=== PATIENT | male | born 1940 | race Caucasian/White ===

== ENCOUNTER → 2020-02-23 09:44 | Outpatient (BNVA) | payer OTHER, SELFPAY | PROVIDERS: Family Provider Family Medicine; PCP Family Medicine; Visit Provider Psychiatry & Neurology Psychiatry | DX: F33.41 Major depressive disorder, recurrent, in partial remission (principal); F43.10 Post-traumatic stress disorder, unspecified | CPT/HCPCS: 90792 ==

== ENCOUNTER → 2020-03-02 10:28 | Outpatient (BNVA) | payer OTHER, SELFPAY | PROVIDERS: Family Provider Family Medicine; PCP Family Medicine; Visit Provider Psychiatry & Neurology Psychiatry | DX: F33.41 Major depressive disorder, recurrent, in partial remission (principal); F43.10 Post-traumatic stress disorder, unspecified | CPT/HCPCS: 99214 ==

== ENCOUNTER → 2020-03-10 07:49 | Outpatient (BNVA) | payer OTHER, SELFPAY | PROVIDERS: Family Provider Family Medicine; PCP Family Medicine; Visit Provider Psychiatry & Neurology Psychiatry | DX: F33.41 Major depressive disorder, recurrent, in partial remission (principal); F43.10 Post-traumatic stress disorder, unspecified | CPT/HCPCS: 99215 ==

== ENCOUNTER → 2020-03-26 07:48 | Outpatient (BNVA) | payer OTHER, SELFPAY | PROVIDERS: Family Provider Family Medicine; PCP Family Medicine; Visit Provider Psychiatry & Neurology Psychiatry | DX: F43.10 Post-traumatic stress disorder, unspecified (principal); F33.41 Major depressive disorder, recurrent, in partial remission | CPT/HCPCS: 99214 ==

== ENCOUNTER → 2020-04-27 13:15 | Outpatient (BNVA) | payer OTHER, BC, SELFPAY | PROVIDERS: Family Provider Family Medicine; PCP Family Medicine; Visit Provider Nurse Practitioner Family | DX: Z11.59 Encounter for screening for other viral diseases (principal); J06.9 Acute upper respiratory infection, unspecified | CPT/HCPCS: 87635 ==

== ENCOUNTER → 2020-05-14 09:17 | Outpatient (BNVA) | payer OTHER, SELFPAY | PROVIDERS: Family Provider Family Medicine; PCP Family Medicine; Visit Provider Psychiatry & Neurology Psychiatry | DX: F43.10 Post-traumatic stress disorder, unspecified (principal); F33.41 Major depressive disorder, recurrent, in partial remission | CPT/HCPCS: 99214 ==

== ENCOUNTER → 2020-07-13 10:45 | Outpatient (BNVA) | payer OTHER, SELFPAY | PROVIDERS: Family Provider Family Medicine; PCP Family Medicine; Visit Provider Psychiatry & Neurology Psychiatry | DX: F33.41 Major depressive disorder, recurrent, in partial remission (principal); F43.10 Post-traumatic stress disorder, unspecified | CPT/HCPCS: 99214 ==

== ENCOUNTER → 2020-08-12 10:48 | Outpatient (BNVA) | payer OTHER, SELFPAY | PROVIDERS: Family Provider Family Medicine; PCP Family Medicine; Visit Provider Psychiatry & Neurology Psychiatry | DX: F43.10 Post-traumatic stress disorder, unspecified (principal); F33.41 Major depressive disorder, recurrent, in partial remission | CPT/HCPCS: 99214 ==

== ENCOUNTER → 2020-09-30 09:48 | Outpatient (BNVA) | payer OTHER, SELFPAY | PROVIDERS: Family Provider Family Medicine; PCP Family Medicine; Visit Provider Psychiatry & Neurology Psychiatry | DX: F33.41 Major depressive disorder, recurrent, in partial remission (principal); F43.10 Post-traumatic stress disorder, unspecified | CPT/HCPCS: 99214 ==

== ENCOUNTER → 2020-11-09 10:47 | Outpatient (BNVA) | payer OTHER, SELFPAY | PROVIDERS: Family Provider Family Medicine; PCP Family Medicine; Visit Provider Psychiatry & Neurology Psychiatry | DX: F43.10 Post-traumatic stress disorder, unspecified (principal); F33.41 Major depressive disorder, recurrent, in partial remission | CPT/HCPCS: 99214 ==

== ENCOUNTER → 2020-12-30 09:59 | Outpatient (BNVA) | payer OTHER, SELFPAY | PROVIDERS: Family Provider Family Medicine; PCP Family Medicine; Referring Provider Family Medicine; Visit Provider Specialist | DX: M79.642 Pain in left hand (principal) | CPT/HCPCS: 73130 ==

== ENCOUNTER → 2021-01-04 10:34 | Outpatient (BNVA) | payer OTHER, SELFPAY | PROVIDERS: Family Provider Family Medicine; PCP Family Medicine; Visit Provider Psychiatry & Neurology Psychiatry | DX: F43.10 Post-traumatic stress disorder, unspecified (principal); F33.41 Major depressive disorder, recurrent, in partial remission | CPT/HCPCS: 99214 ==

== ENCOUNTER → 2021-01-10 10:11 | Outpatient (BNVA) | payer OTHER, SELFPAY | PROVIDERS: Family Provider Family Medicine; PCP Family Medicine; Visit Provider Specialist | DX: M79.643 Pain in unspecified hand (principal); Z11.52 Encounter for screening for COVID-19 | CPT/HCPCS: 87635 ==

== ENCOUNTER 2021-01-14 06:41 | Day surgery (SDC) | payer OTHER, SELFPAY ==
[2021-01-13 16:36] VITALS: BMI 30.2
--- NOTE | 2021-01-14 06:57 | P.HPUD_ITS ---
Surgery/Procedure H&P Update DATE OF PROCEDURE: January 14, 2021 DATE H&P PERFORMED: 12/30/20 H&P UPDATE INFORMATION: I have reviewed H&P completed within last 30 days, I have examined patient prior to procedure, No changes to prior documentation and H&P is in [facility] EMR on date indicated PREOP DIAGNOSIS: Left ring finger triggering PLANNED PROCEDURE: Operation Date: 01/14/21 08:20 Proposed Procedures p LEFT RING FINGER TRIGGER FINGER RELEASE 29792 m65.30(Left) - Christina River MD Related Problem List Diagnoses (1) Trigger ring finger of left hand:
[2021-01-14 06:59] VITALS: BP 146/79; PULSE 57; RESP 18; TEMP 36.4; O2SAT 96
[2021-01-14] MEDS: sodium chloride 0.9% 1,000 ML 30 ML IV (07:21)
[2021-01-14] MEDS: acetaminophen 1,000 MG/100 ML PIGGYBACK 400 MG IV (07:22)
[2021-01-14] MEDS: CELEcoxib 200 mg Capsule 400 MG PO (07:22)
--- NOTE | 2021-01-14 07:36 | ANES.PREANE2 ---
Pre-Anesthetic Assessment Pre-Anesthetic Assessment: Height/Weight: Height 1.75 m Weight 92.986 kg Temp Pulse Resp BP Pulse Ox 97.6 F 57 L 18 146/79 96 01/14/21 06:59 01/14/21 06:59 01/14/21 06:59 01/14/21 06:59 01/14/21 06:59 Preop Diagnosis: Left ring finger triggering Proposed Procedure: Operation Date: 01/14/21 08:20 Proposed Procedures p LEFT RING FINGER TRIGGER FINGER RELEASE 42087 m65.30(Left) - Christina River MD Was Beta Eze taken within 24 hours: N/A Was Clonidine taken within 24 hours: N/A Last intake: Intake Last Liquid Date 01/14/21 Last Liquid Time 05:00 Last Solid Date 01/13/21 Last Solid Time 18:30 Social: Social History: No alcohol and No tobacco Exam: Pre-Anes Outpt Exam: alert, oriented x 3, clear to auscultation bilaterally and regular rate & rhythm Airway: Submandibular: WNL Cervical ROM: WNL MP: 2 History/ROS: No significant history except as noted Musc/skel: Musc/skel: OA/DJD Neuropsych: Neuropsych: Depression Anesthetic Plan: ASA status: 2 Anesthesia: MAC and Regional (specify below) (Marry mills) Other: History of adverse rxn to Versed. Risk of > 500 ml blood loss (7ml/kg in children): No Meds/Allergies Current Medications: Current Medications Generic Name Dose Route Start Last Admin Trade Name Freq PRN Reason Stop Dose Admin Sodium Chloride 1,000 mls @ 30 ml s/hr 01/14/21 07:00 01/14/21 07:21 Sodium Chloride 0.9% IV 01/15/21 06:59 30 mls/hr .Q24H DESTIN Administration PFSH Anesthesia PFSH: Medical History Major depressive disorder PTSD (post-traumatic stress disorder) Social History Smoking and tobacco status: former smoker Quit status (tobacco): has quit using tobacco Year quit tobacco: 1974 Second hand smoke exposure: No Current gender identity: Male Data Anesthesia Cardiac Studies: No Data to Display
[2021-01-14 09:08] VITALS: BP 156/86; PULSE 97; RESP 18; TEMP 36.5; O2SAT 97
[2021-01-14 09:10] VITALS: BP 153/93; BP 156/86; PULSE 64; PULSE 65; RESP 16; RESP 18; O2SAT 94; O2SAT 98
[2021-01-14 09:15] VITALS: BP 153/93; PULSE 61; RESP 17; O2SAT 95
[2021-01-14 09:20] VITALS: BP 166/85; PULSE 62; RESP 17; TEMP 36.6; O2SAT 95
--- NOTE | 2021-01-14 09:45 | P.OP_ITS ---
Operative Report Date of procedure: January 14, 2021 Pre-op Diagnosis: Left ring finger triggering Post-op diagnosis: same Post-op Findings: Significant thickening of the A1 lucas Procedure Done: Release left trigger finger Implants: None Specimens removed/disposition: None Pathology: none sent Surgeon: Christina River Grout Pump Operator: None Anesthesia: MAC (With Marry block) Estimated blood loss (mL): 0 Tourniquet time (min): 27 Tourniquet time: At 250 mmHg IV fluids (mL): 200 Urine output (mL): 0 Urine output: No Lacey Complications: None Findings: Triggering with significant thickening of the A1 lucas. No masses on the tendons. Condition: stable Disposition: PACU (Then to same-day surgery for discharge home) Brief History: This 80-year-old gentleman presented to the office with bilateral ring finger triggering. He had significant triggering to the point where the finger would get stuck and he had to manually pry the finger open. He had significant pain and interfered with his activities of daily living. He wished to proceed with operative intervention. Risks and complications were discussed with him. Consents were signed preoperatively and questions were answered. Procedure: Patient was brought to the operating theater. He was placed on the operating room table. A [place] block was administered without difficulty. Patient tolerated it well. Ancef 2 g was administered preoperatively prophylactically. A tourniquet was placed high on the arm and was elevated for the Marry block. This followed exsanguination of the arm. Tourniquet time was 27 minutes. Surgical pause was performed prior to commencement of the surgical procedure. At the time of the surgical pause we identified the site and side of surgery. We also ident ified the patient's identity and appropriate administration of IV antibiotics. Following the surgical pause, an incision was made along the distal palmar crease beneath ring finger. Dissection continued through the skin to the subcutaneous tissues using a scalpel. Blunt dissection was then utilized to spread soft tissues and allow access to the A1 lucas. It was then incised longitudinally and sharply using a knife. This was accomplished without difficulty and atraumatically. Once the A1 lucas was released, tendons were brought up out of the wound and evaluated. There were no gross masses on the tendons. Tendons were returned to normal position. We then irrigated the wound and subsequently closed it with 3-0 nylon with an interrupted mattress type suture. Following closure of the wound, the wound was injected with bupivacaine into the subcutaneous tissues as a local anesthetic. Sterile dressing was then placed consisting of OpSite, fluffed fluffs, sterile soft roll, and an Zeyad wrap. The patient was returned to recovery in satisfactory condition. He will be discharged home to follow-up with me in the office. There were no complications and no specimens. Associated Problem List Diagnoses (1) Trigger ring finger of left hand:
[2021-01-14 09:51] VITALS: BP 156/91; PULSE 62; RESP 18; TEMP 36.6; O2SAT 96
--- NOTE | 2021-01-14 15:51 | ANE.PACU2 ---
Inpatient post-anesthesia follow up: Airway intact: Yes Vital signs: Temperature 97.9 F Pulse Rate 62 Respiratory Rate 18 Blood Pressure 156/91 Pulse Oximetry 96 Oxygen Delivery Me thod Room Air Oxygen Flow Rate 6 Fraction of Inspir ed Oxygen Hydration adequate: Yes Nausea and vomiting: No Pain level: 1 Mental status: Baseline
== END 2021-01-14 10:25 | disposition home or self-care (01) ==
PROVIDERS: PCP Family Medicine; Visit Provider Specialist
PROC: (CPT 26055; principal; 2021-01-14 08:10)
DX: M65.342 Trigger finger, left ring finger (principal); F32.9 Major depressive disorder, single episode, unspecified; Z87.891 Personal history of nicotine dependence
CPT/HCPCS: 26055; 96365; J0690; J2405; J2704; J3490; J7030

== ENCOUNTER → 2021-01-31 08:36 | Outpatient (BNVA) | payer OTHER, SELFPAY | PROVIDERS: PCP Family Medicine; Referring Provider Specialist; Visit Provider Specialist | DX: Z01.812 Encounter for preprocedural laboratory examination (principal); Z20.822 Contact with and (suspected) exposure to COVID-19 | CPT/HCPCS: 87635 ==

== ENCOUNTER 2021-02-04 06:48 | Day surgery (SDC) | payer OTHER, MEDICARE, SELFPAY ==
[2021-02-03 12:27] VITALS: BMI 29.5
--- NOTE | 2021-02-04 07:00 | W.PM.OPSUD ---
Surgery/Procedure H&P Update DATE OF PROCEDURE: February 04, 2021 DATE H&P PERFORMED: 01/31/21 H&P UPDATE INFORMATION: I have reviewed H&P completed within last 30 days, I have examined patient prior to procedure, No changes to prior documentation and [place] is [place] [facility] [place] date indicated PREOP DIAGNOSIS: Right ring finger triggering PLANNED PROCEDURE: Operation Date: 02/04/21 08:20 Proposed Procedures p RIGHT RING FINGER TRIGGER FINGER RELEASE 36001 m65.30(Right) - Christina River MD Related Problem List Diagnoses (1) Trigger finger, right ring finger:
[2021-02-04 07:11] VITALS: BP 169/84; PULSE 59; RESP 18; TEMP 36.1; O2SAT 95
--- NOTE | 2021-02-04 07:31 | ANES.PREANE2 ---
Pre-Anesthetic Assessment Pre-Anesthetic Assessment: Height/Weight: Height 1.75 m Weight 90.718 kg Temp Pulse Resp BP Pulse Ox 97 F L 59 L 18 169/84 95 02/04/21 07:11 02/04/21 07:11 02/04/21 07:11 02/04/21 07:11 02/04/21 07:11 Preop Diagnosis: Right ring finger trigger finger Proposed Procedure: Operation Date: 02/04/21 08:20 Proposed Procedures p RIGHT RING FINGER TRIGGER FINGER RELEASE 67105 m65.30(Right) - Christina River MD Familial anesthetic complications: Spinal block didn't take for knee, said he had to get more anesthesia and then he hallucinated for months. ? Versed. Was Beta Eze taken within 24 hours: N/A Was Clonidine taken within 24 hours: N/A Last intake: Intake Last Liquid Date 02/03/21 Last Liquid Time 21:30 Last Solid Date 02/03/21 Last Solid Time 18:30 Social: Social History: No alcohol and No tobacco Exam: Pre-Anes Outpt Exam: alert, oriented x 3, clear to auscultation bilaterally and regular rate & rhythm Airway: Cervical ROM: WNL MP: 2 Dentition: Full CV/HEM: CV/HEM: HTN Neuropsych: Comments: ? dementia take donepezil Anesthetic Plan: ASA status: 2 Anesthesia: Regional (specify below) (frank block) Risk of > 500 ml blood loss (7ml/kg in children): No PFSH Anesthesia PFSH: Medical History Major depressive disorder PTSD (post-traumatic stress disorder) Social History Quit status (tobacco): has quit using tobacco Year quit tobacco: 1974 Second hand smoke exposure: No Current gender identity: Male Data Anesthesia Cardiac Studies: No Data to Display
[2021-02-04] MEDS: CELEcoxib 200 mg Capsule 400 MG PO (07:41)
[2021-02-04] MEDS: sodium chloride 0.9% 1,000 ML 30 ML IV (07:44)
[2021-02-04] MEDS: acetaminophen 1,000 MG/100 ML PIGGYBACK 400 MG IV (07:45)
[2021-02-04 08:49] VITALS: BP 138/84; PULSE 62; RESP 14; TEMP 36.4; O2SAT 94
[2021-02-04 08:55] VITALS: BP 151/74; PULSE 59; RESP 17; O2SAT 92
[2021-02-04 09:00] VITALS: BP 147/78; PULSE 59; RESP 17; TEMP 36.6; O2SAT 93
--- NOTE | 2021-02-04 09:09 | PM.OP ---
Operative Report Date of procedure: February 04, 2021 Pre-op Diagnosis: Right ring finger trigger finger Post-op diagnosis: same Post-op Findings: Thickened A1 lucas with triggering thickened A1 lucas Procedure Done: Release right ring trigger finger Implants: None Specimens removed/disposition: None Pathology: none sent Surgeon: Christina River Anesthesia: MAC (With Marry block) Estimated blood loss (mL): 1 Tourniquet time (min): 23 Tourniquet time: At 250 mmHg IV fluids (mL): 300 Urine output (mL): 0 Urine output: No Lacey Complications: None Findings: Triggering with significant thickening of the A1 lucas right ring finger. No masses or lesions on the tendons. Condition: stable Disposition: PACU (Then to same-day surgery for discharge to home) Brief History: This 80-year-old gentleman presented to the office with bilateral ring finger triggering. He had significant triggering to the point where the left ring finger finger would get stuck and he had to manually pry the finger open. He is status post trigger finger release on this hand and is doing well. Now he presents with triggering of the right hand. He has significant pain and interference with his activities of daily living. He wishs to proceed with operative intervention. Risks and complications were discussed with him. Consents were signed preoperatively and questions were answered. Procedure: Patient was brought to the operating theater. He was placed on the operating room table. A Marry block was administered without difficulty. Patient tolerated it well. Ancef 2 g was administered preoperatively prophylactically. A tourniquet was placed high on the arm and was elevated for the Marry block. This followed exsanguination of the arm. Tourniquet time was 23 minutes. Surgical pause was performed prior to commencement of the surgical procedure. At the time of the surgical pause we identified the site and side of surgery. We also identified the patient's identity and appropriate administration of IV antibiotics, Ancef 2 g. Following the surgical pause, an incision was made along the distal palmar crease beneath ring finger. Dissection continued through the skin to the subcutaneous tissues using a scalpel. Blunt dissection was then utilized to spread soft tissues and allow access to the A1 lucas. It was then incised longitudinally and sharply using a knife. This was accomplished without difficulty and atraumatically. Once the A1 lucas was released, tendons were brought up out of the wound and evaluated. There were no gross masses on the tendons. Tendons were returned to normal position. We then irrigated the wound and subsequently closed it with 3-0 nylon with an interrupted mattress type suture. Following closure of the wound, the wound was injected with bupivacaine into the subcutaneous tissues as a local anesthetic. Sterile dressing was then placed consisting of Dermabond, OpSite, fluffed fluffs, sterile soft roll, and an Zeyad wrap. The patient was returned to recovery in satisfactory condition. He will be discharged home to follow-up with me in the office. There were no complications and no specimens.
[2021-02-04 09:23] VITALS: BP 165/66; PULSE 57; RESP 18; TEMP 36.7; O2SAT 96
--- NOTE | 2021-02-04 14:50 | ANE.PACU2 ---
Inpatient post-anesthesia follow up: Airway intact: Yes Vital signs: Temperature 98.1 F Pulse Rate 57 Respiratory Rate 18 Blood Pressure 165/66 Pulse Oximetry 96 Oxygen Delivery Me thod Room Air Oxygen Flow Rate Fraction of Inspir ed Oxygen Hydration adequate: Yes Nausea and vomiting: No Pain level: 1 Mental status: Baseline
== END 2021-02-04 09:41 | disposition home or self-care (01) ==
PROVIDERS: PCP Family Medicine; Visit Provider Specialist
PROC: (CPT 26055; principal; 2021-02-04 08:10)
DX: M65.341 Trigger finger, right ring finger (principal); I10 Essential (primary) hypertension; F03.90 Unspecified dementia, unspecified severity, without behavioral disturbance, psychotic disturbance, mood disturbance, and anxiety; Z87.891 Personal history of nicotine dependence
CPT/HCPCS: 26055; 96365; J0690; J2704; J3490; J7030

== ENCOUNTER → 2021-02-14 09:45 | Outpatient (BNVA) | payer OTHER, SELFPAY | PROVIDERS: PCP Family Medicine; Visit Provider Psychiatry & Neurology Psychiatry | DX: F43.10 Post-traumatic stress disorder, unspecified (principal); F33.41 Major depressive disorder, recurrent, in partial remission | CPT/HCPCS: 99214 ==

== ENCOUNTER 2021-02-15 06:00 | Outpatient (RCR) | payer OTHER, SELFPAY | END 2021-03-01 23:59 | disposition home or self-care (01) | LOC: MPT 06:00 | PROVIDERS: PCP Family Medicine; Referring Provider Family Medicine; Visit Provider Family Medicine | DX: R27.0 Ataxia, unspecified (principal) | CPT/HCPCS: 95992; 97110; 97112; 97116; 97162 ==

== ENCOUNTER 2021-02-18 13:25 | Outpatient (CLI) | payer OTHER, MEDICARE, SELFPAY ==
--- NOTE | 2021-02-18 13:30 | MR_ITS ---
WS: [id number] MRI HEAD WITHOUT CONTRAST TECHNIQUE: Sagittal T1, T2 axial, T2 axial FLAIR, axial and coronal T1 images, axial susceptibility w eighted imaging, axial diffusion weighted images, and coronal T2 images were obtained. CLINICAL INFORMATION: ATAXIA;DEMENTIA COMPARISON: None. FINDINGS: No evidence of restricted diffusion to suggest acute ischemia. Ventricular system and basal cisterns are patent. Moderate small vessel changes. Moderate parenchymal volume loss. Normal posterior fossa. Normal vascular flow voids at the skull base. No extra-axial fluid collections. Chronic lacunar infarct right caudate. Paranasal sinuses and mastoid air cells are well aerated. No h emosiderin on the susceptibility weighted images. Normal optic chiasm and pituitary infundibulum. Mod erate symmetric atrophy temporal lobes and hippocampal formations. Normal cavernous sinuses and Mecke l's cave. MR/MR head wo con* [id number] IMPRESSION: 1. No evidence of restricted diffusion to suggest acute ischemia. 2. Mild small vessel changes with moderate parenchymal volume loss. 3. Parenchymal volume loss more prominent in the parietal and temporal lobes. 4. No hemosiderin on the susceptibly weighted images. 5. Moderate symmetric atrophy temporal lobes and hippocampal formations. 6. Chronic lacunar infarct right caudate.
== END 2021-02-18 13:26 | disposition home or self-care (01) ==
LOC: RADSHAW 13:28
PROVIDERS: PCP Family Medicine; Visit Provider Family Medicine
DX: R27.0 Ataxia, unspecified (principal); F03.90 Unspecified dementia, unspecified severity, without behavioral disturbance, psychotic disturbance, mood disturbance, and anxiety; I63.81 Other cerebral infarction due to occlusion or stenosis of small artery; G31.9 Degenerative disease of nervous system, unspecified
CPT/HCPCS: 70551

== ENCOUNTER → 2021-02-21 08:30 | Outpatient (BNVA) | payer OTHER, MEDICARE, SELFPAY | PROVIDERS: PCP Family Medicine; Visit Provider Specialist | DX: N39.0 Urinary tract infection, site not specified (principal); M65.341 Trigger finger, right ring finger; Z98.890 Other specified postprocedural states | CPT/HCPCS: 81000 ==

== ENCOUNTER → 2021-02-23 14:10 | Outpatient (BNVA) | payer OTHER, MEDICARE, SELFPAY | PROVIDERS: PCP Family Medicine; Visit Provider Specialist | DX: M25.511 Pain in right shoulder (principal); M19.011 Primary osteoarthritis, right shoulder | CPT/HCPCS: 73030 ==

== ENCOUNTER 2021-03-04 10:05 | Outpatient (CLI) | payer OTHER, MEDICARE, SELFPAY ==
--- NOTE | 2021-03-04 10:15 | MR_ITS ---
WS: [id number] MRI LEFT SHOULDER NONCONTRAST TECHNIQUE: Sagittal T2, coronal T1, T2 and proton density imaging. Axial gradient PDE imaging. CLINICAL INFORMATION: M25.519 - Pain in unspecified shoulder COMPARISON: None. FINDINGS: Advanced degenerative arthritis at the AC joint with edema and synovial thickening. Small amount of s ubacromial/subdeltoid fluid. Subacromial spurring with mild downsloping of the acromion. Slight impin gement on the distal supraspinatus. Mild chronic thinning of the distal supraspinatus. Normal infrasp inatus. Normal teres minor and subscapularis. Intra-articular biceps tendon appears intact. Normal biceps tendon in the bicipital groove. Degenerative fraying of the glenoid labrum. Subchondral cystic change involving the glenoid. Normal biceps labral anchor. Moderate degenerative arthritis glenohumeral joint MR/MR shoulder LT wo con* [id number] IMPRESSION: 1. Advanced degenerative arthritis AC joint with prominent synovial thickening and edema. Mild downsloping acromion with subacromial spurring. 2. Slight impingement on the distal supraspinatus which is intact. Mild chroni c thinning of the distal supraspinatus. Rotator cuff is otherwise normal. 3. Normal biceps tendon within the bicipital groove. Normal intra-articular bi ceps tendon. 4. Degenerative fraying of the glenoid labrum. Subchondral cystic change invol ving the glenoid.
== END 2021-03-04 10:06 | disposition home or self-care (01) ==
PROVIDERS: PCP Family Medicine; Visit Provider Specialist
DX: M19.012 Primary osteoarthritis, left shoulder (principal)
CPT/HCPCS: 73221

== ENCOUNTER → 2021-03-28 09:43 | Outpatient (BNVA) | payer OTHER, SELFPAY | PROVIDERS: PCP Family Medicine; Visit Provider Psychiatry & Neurology Psychiatry | DX: F43.10 Post-traumatic stress disorder, unspecified (principal); F33.41 Major depressive disorder, recurrent, in partial remission | CPT/HCPCS: 99214 ==

== ENCOUNTER → 2021-05-23 08:25 | Outpatient (BNVA) | payer OTHER, SELFPAY | PROVIDERS: PCP Family Medicine; Visit Provider Urology | DX: N40.0 Benign prostatic hyperplasia without lower urinary tract symptoms (principal); Z12.5 Encounter for screening for malignant neoplasm of prostate | CPT/HCPCS: 81003; G0103 ==

== ENCOUNTER 2021-09-12 12:36 | Emergency (ER) | payer OTHER, MEDICARE, SELFPAY ==
[2021-09-12 12:52] VITALS: BP 159/88; PULSE 72; RESP 18; TEMP 36.7; O2SAT 95; BMI 29.5
--- NOTE | 2021-09-12 13:00 | CT_ITS ---
WS: [id number] CT head wo con* [id number] REASON FOR EXAM: fall, closed head injury IV CONTRAST ADMINISTERED: Noncontrast. TOTAL EXAM DLP: 1026.[address] scans at [facility] use at least one of these dose optimization techniques: automat ed exposure control; mA and/or kV adjustment per patient size (includes targeted exams where dose is matched to clinical indication); or iterative reconstruction. FINDINGS: No midline shift or other significant mass effect. No findings of intracranial hemorrhage and no extra-axial fluid collection. CSF spaces are normal volume and configuration. No focal brain parenchymal abnormality. Base of skull is intact. Normal calvarium. CT/CT head wo con* [id number] IMPRESSION: No acute intracranial abnormality.
[2021-09-12 13:08] VITALS: BP 175/84; PULSE 68; O2SAT 93
[2021-09-12 13:45] LABS: Basophils # 0.1 10^3/uL (0.0-0.1); Basophils % 0.7 %; Eosinophils # 0.2 10^3/uL (0.0-0.8); Eosinophils % 3.2 %; Hemoglobin 13.9 g/dL (11.7-16.6); Lymphocytes # 2.2 10^3/uL (0.8-4.8); Mean Corpuscular HGB Conc 29.6 g/dL (30.0-36.0); Mean Corpuscular Hemoglobin 30.5 pg (28.0-34.0); Mean Corpuscular Volume 103.1 fl (80-94); Mean Platelet Volume 9.3 fL (7.4-10.4); Monocytes # 0.7 10^3/uL (0.2-0.9); Monocytes % 9.8 %; Neutrophils # 4.22 10^3/uL (1.8-7.7); Neutrophils % 56.8 %; Nucleated Red Blood Cells % 0 %; Platelet Count 256 10^3/cmm (130-400); Red Blood Count 4.56 10^6/uL (4.1-5.3); Red Cell Distribution Width 12.3 % (12.1-15.1); White Blood Count 7.4 10^3/uL (4.0-10.0)
--- NOTE | 2021-09-12 14:06 | W.ED.FALL ---
HPI - Fall General: Chief Complaint: Fall Stated Complaint: hit head, sent for ct scan Time Seen by Provider: 09/12/21 12:58 Source: patient Mode of arrival: ambulatory Limitations: no limitations History of Present Illness: 81-year-old male presents emergency room with his daughter. He been falling several times since Sunday he does report having fallen frequently 3 days ago he fell and hit his head he has a small hematoma in the right frontal lobe at the hairline. He is continues to have his episodes of dizziness lightheadedness he was at the [place] and began leaning into the wall because of his dizziness they became quite concerned and sent him here he has not had any vomiting since he is not on any anticoagulants. He denies any chest pain. Shortly after I seen him he wanted to go home states he felt fine related only to head CT for which we were able to convince him to stay MD complaint: fall Onset (ago): day(s) Fall from: standing Fall witnessed: yes, by family Place fall occurred: home Loss of consciousness: Unsure Prolonged down time: no Context: tripped/slipped Location of injury: head Associated symptoms-after fall: Reports lightheadedness; Denies abdominal pain, chest pain, confusion, difficulty walking, headache(s), hematuria, neck pain, numbness, short of breath, vertigo or weakness Review of Systems Const: Denies: fever(s), chills, body aches, change in appetite, fatigue or malaise ENMT: Denies: throat pain, ear or mastoid pain, nasal discharge or nasal congestion Card: Reports: lightheadedness; Denies: chest pain Resp: Denies: dyspnea, productive cough or non-productive cough GI: Denies: abdominal pain : Denies: hematuria Musc: Denies: neck pain Skin/Breast: Denies: rash or pruritus Neuro: Denies: headache(s), difficulty walking, vertigo or confusion PFSH ED PFSH: Medical History BPH loc w urin obs/LUTS Hx of cataract Major depressive disorder Psychiatric care PTSD (post-traumatic stress disorder) Surgical History History of hip replacement Hx of appendectomy Hx of cholecystectomy Hx of discectomy Hx of total knee replacement Family History Brother Diabetes Mother , AT AGE 81 CHF (congestive heart failure) Father , AT AGE 75 CAD (coronary artery disease) Social History Smoking and tobacco status: former smoker Quit status (tobacco): has quit using tobacco Year quit tobacco: 1974 Second hand smoke exposure: No Alcohol intake: never Marital status: Current occupational status: retired Current gender identity: Male Physical Exam Const: COMMON NORMALS: no acute distress GENERAL APPEARANCE: cooperative and comfortable ORIENTATION/CONSCIOUSNESS: Yes awake HENMT: COMMON NORMALS: normocephalic and hearing grossly normal bilaterally HEAD & SCALP: normocephalic Eye: COMMON NORMALS: Equal, round and reactive pupils present, EOMs intact bilaterally, conjunctivae normal and no scleral icterus CONJUNCTIVA: Yes conjunctivae normal PUPIL: Yes Equal, round and reactive pupils present Neck/C-Spine: COMMON NORMALS: no JVD Resp: COMMON NORMALS: normal respiratory effort, No retractions, No use of accessory muscles and clear to auscultation bilaterally AUSCULTATION: clear to auscultation bilaterally Cardio: COMMON NORMALS: no JVD, regular rate, regular rhythm and No murmurs present (Cardio) RATE: regular rate RHYTHM: regular rhythm GI: COMMON NORMALS: Soft to palpation and No hepatosplenomegaly present AUSCULTATION: Yes normoactive bowel sounds PALPATION: Yes Soft to palpation, No Tenderness to palpation present (GI), No Guarding due to palpation present (GI) and Yes No hepatosplenomegaly present Extremity: COMMON NORMALS: normal to inspection, capillary refill normal, no clubbing, cyanosis or edema, no calf tenderness and no pedal edema Skin: COMMON NORMALS: no rashes or lesions noted GENERAL SKIN EXAM: no rashes or lesions noted Course Vital Signs: Vital signs: Vital Signs Temperature 98.1 F 09/12/21 12:52 Pulse Rate 66 09/12/21 15:30 Respiratory Rate 21 H 09/12/21 15:30 Blood Pressure 163/82 09/12/21 15:30 Pulse Oximetry 93 09/12/21 15:30 MDM - Fall Medical Decision Making CT head negative. Patient feeling fine is anxious to go reviewed labs and imaging with him discharge home encouraged him to follow-up with his primary care doctor consider referral to PT for gait and balance training Medical Records I reviewed the patient's medical records. Lab Data I reviewed the patient's lab results. : 09/12/21 13:27 09/12/21 13:[address] 09/12/21 13:00 IMPRESSION: No acute intracranial abnormality. Laboratory Results WBC 7.4 10^3/uL (4.0-10.0) 09/12/21 13:27 RBC 4.56 10^6/uL (4.1-5.3) 09/12/21 13: Hgb 13.9 g/dL (11.7-16.6) 09/12/21 13: Hct 47.0 % (42.0-52.0) 09/12/21 13: MCV 103.1 fl (80-94) H 09/12/21 13:27 MCH 30.5 pg (28.0-34.0) 09/12/21 13:27 MCHC 29.6 g/dL (30.0-36.0) L 09/12/21 13:27 RDW 12.3 % (12.1-15.1) 09/12/21 13:27 Plt Count 256 10^3/cmm (130-400) 09/12/21 13:27 MPV 9.3 fL (7.4-10.4) 09/12/21 13:27 Neut % (Auto) 56.8 % 09/12/21 13:27 Lymph % (Auto) 29.0 % 09/12/21 13:27 [place] % (Auto) 9.8 % 09/12/21 13:27 Eos % (Auto) 3.2 % 09/12/21 13:27 Baso % (Auto) 0.7 % 09/12/21 13:27 Neut # (Auto) 4.22 10^3/uL (1.8-7.7) 09/12/21 13:27 Lymph # (Auto) 2.2 10^3/uL (0.8-4.8) 09/12/21 13:27 [place] # (Auto) 0.7 10^3/uL (0.2-0.9) 09/12/21 13:27 Eos # (Auto) 0.2 10^3/uL (0.0-0.8) 09/12/21 13:27 Baso # (Auto) 0.1 10^3/uL (0.0-0.1) 09/12/21 13:27 Nucleated RBC % (auto) 0 % 09/12/21 13:27 Nucleated RBCs # 0.0 /100WBC 09/12/21 13:27 Sodium 141 mmol/L (136-145) 09/12/21 13:27 Potassium 3.2 mmol/L (3.5-5.1) L 09/12/21 13:27 Chloride 105 mmol/L (98-107) 09/12/21 13:27 Carbon Dioxide 26 mmol/L (22-29) 09/12/21 13:27 Anion Gap 13.2 (5-19) 09/12/21 13:27 BUN 18 mg/dL (8-23) 09/12/21 13:27 Creatinine 0.9 mg/dL (0.7-1.2) 09/12/21 13:27 GFR Calculation Not Reportable 09/12/21 13:27 Glucose 158 mg/dL (65-115) H 09/12/21 13:27 Calculated Osmolality 297 mOsm/kg (285-295) H 09/12/21 13:27 Calcium 8.5 mg/dL (8.5-10.5) 09/12/21 13:27 Total Bilirubin 0.4 mg/dL (0.15-1.2) 09/12/21 13:27 AST 16 U/L (0-40) 09/12/21 13:27 ALT 13 U/L (0-41) 09/12/21 13:27 Alkaline Phosphatase 80 IU/L (40-130) 09/12/21 13:27 Total Protein 5.8 g/dL (6.6-8.7) L 09/12/21 13:27 Albumin 3.9 g/dL (3.5-5.2) 09/12/21 13:27 Globulin 1.9 g/dL (1.3-4.6) 09/12/21 13:27 Discharge Plan Discharge Patient Disposition: Home Clinical Impression: Fall, Closed head injury Condition: Stable Prescriptions: No Action clobetasol 0.05 % cream 1 applic TOPICAL DAILY PRN (Reason: rash) 0RF meloxicam 15 mg tablet 15 mg PO QAM 0RF hydrochlorothiazide 25 mg tablet 25 mg PO QAM 0RF All Day Allergy (cetirizine) 10 mg capsule 10 mg PO QAM 0RF acetaminophen [Tylenol Arthritis Pain] 650 mg tablet extended release 1,300 mg PO BEDTIME 0RF tramadol 50 mg tablet 50 mg PO Q6H PRN (Reason: Pain) 0RF cephalexin 500 mg capsule 500 mg PO BID 7 Days Qty: 14 0RF silver sulfadiazine 1 % cream 1 applic topical BID 14 Days Qty: 50 2RF Rx Instructions: apply a 1.5 mm thickness bupropion HCl 150 mg tablet extended release 24 hr 150 mg PO QAM 90 Days Qty: 90 3RF donepezil 10 mg Tablet 10 mg PO BEDTIME 0RF Aspir-81 81 mg Tablet,Delayed Release (Dr/Ec) 81 mg PO QAM 0RF baclofen 10 mg Tablet 10 mg PO BID 0RF Benadryl 25 mg Capsule 25 mg PO BEDTIME 0RF Saline Nasal 0.65 % Aerosol,Devers 2 spray INTRANASAL .UP TO TWICE A DAY 0RF trazodone 50 mg tablet 50 mg PO BEDTIME 0RF clonazepam 0.5 mg tablet 0.5 mg PO BID 0RF Discharge Orders: Discharge ED (Routine); Ordered 09/12/21 Ordered By: Lester Prater Referrals: Iris Tao MD [Primary Care Provider] - Discharge Diet: Usual diet Discharge Activity: Increase activity as tolerated Patient Instructions: Opioid Safety Activity Restrictions/Additional Instructions: Follow-up with primary care doctor if not improving Coding Level of Care Code ED Engineering Specialist Technician for Chg Fwd Exam Comprehensive
[2021-09-12 14:09] LABS: Alanine Aminotransferase 13 U/L (0-41); Albumin Level 3.9 g/dL (3.5-5.2); Alkaline Phosphatase 80 IU/L (40-130); Anion Gap 13.2 (5-19); Aspartate Amino Transferase 16 U/L (0-40); Blood Urea Nitrogen 18 mg/dL (8-23); Calcium 8.5 mg/dL (8.5-10.5); Carbon Dioxide 26 mmol/L (22-29); Chloride 105 mmol/L (98-107); Globulin 1.9 g/dL (1.3-4.6); Glucose 158 mg/dL (65-115); Osmolality Calculated 297 mOsm/kg (285-295); Potassium 3.2 mmol/L (3.5-5.1); Sodium 141 mmol/L (136-145); Total Bilirubin 0.4 mg/dL (0.15-1.2); Total Protein 5.8 g/dL (6.6-8.7)
[2021-09-12 14:35] VITALS: BP 153/84; PULSE 64; RESP 18; O2SAT 92
[2021-09-12 14:37] VITALS: O2SAT 92
[2021-09-12 15:30] VITALS: BP 163/82; PULSE 66; RESP 21; O2SAT 93
== END 2021-09-12 15:22 | disposition home or self-care (01) ==
PROVIDERS: Emergency Provider Family Medicine; PCP Family Medicine
DX: S09.8XXA Other specified injuries of head, initial encounter (principal); Z79.82 Long term (current) use of aspirin; Z87.891 Personal history of nicotine dependence; W19.XXXA Unspecified fall, initial encounter
CPT/HCPCS: 70450; 80053; 85025; 99283

== ENCOUNTER → 2021-10-12 08:30 | Outpatient (BNVA) | payer OTHER, MEDICARE, SELFPAY | PROVIDERS: PCP Family Medicine; Visit Provider Podiatrist Foot & Ankle Surgery | DX: L60.3 Nail dystrophy (principal); Z98.890 Other specified postprocedural states; Z87.891 Personal history of nicotine dependence | CPT/HCPCS: 11750; 99213 ==

== ENCOUNTER 2021-10-18 13:21 | Emergency (ER) | payer OTHER, MEDICARE, SELFPAY ==
--- NOTE | 2021-10-18 13:32 | XR_ITS ---
WS: [id number] Exam: XR knee RT 3V* [id number] Date/Time of Exam: 10/18/2021 1:51 PM Reason For Exam: eval injury A total knee prosthesis is in place in satisfactory position. No sign of loosening or fracture. Moder ate effusion in the suprapatellar bursa. XR/XR knee RT 3V* [id number] IMPRESSION: 1. Intact total knee replacement. No fracture or loosening. 2. Joint effusion.
[2021-10-18 13:37] VITALS: BP 151/95; PULSE 62; RESP 18; TEMP 36.6; O2SAT 95; BMI 30.2
--- NOTE | 2021-10-18 13:48 | CT_ITS ---
WS: [email or web address] CT CERVICAL TRAUMA TECHNIQUE: Noncontrast CT of the cervical spine with coronal and sagittal reformatted images. CLINICAL INFORMATION: fall COMPARISON: None. DLP: 789.[address] scans at [facility] use at least one of these dose optimization techniques: automated e xposure control; mA and/or kV adjustment per patient size (includes targeted exams where dose is matc hed to clinical indication); or iterative reconstruction. FINDINGS: Straightening of the normal cervical lordosis. Slight anterolisthesis C5 on C6. Disc space narrowing worse at C6-C7. Mild central canal stenosis C5-C6 and C6-C7. Normal craniocervical junction. Normal C 1-C2 articulation. Dens is normal in appearance. Normal occipital condyles. Normal C1 ring. No eviden ce of acute fracture or dislocation. Bilateral thyroid nodules largest in the RIGHT measuring 1.[address]/CT cervical spin wo con* 20590 IMPRESSION: No evidence of acute fracture or dislocation.
--- NOTE | 2021-10-18 13:48 | CT_ITS ---
WS: [email or web address] CT FACIAL BONES TECHNIQUE: Noncontrast facial bones with coronal and sagittal reformatted images. CLINICAL INFORMATION: fall COMPARISON: None. DLP: 744.[address] scans at [place] use at least one of these dose optimization techniques: automated e xposure control; mA and/or kV adjustment per patient size (includes targeted exams where dose is matc hed to clinical indication); or iterative reconstruction. FINDINGS: Mild mucosal thickening ethmoid air cells. Mastoid air cells are well aerated. Normal visualized soft tissues. Normal posterior nasopharynx. Normal parapharyngeal fat. Parotid glands are normal. Submand ibular glands are normal where visualized. Orbits are normal in appearance. Inferior orbits are normal in appearance. Normal lamina papyracea. No evidence of mandibular fracture dislocation. CT/CT facial bones wo con* [id number] IMPRESSION: No acute facial fracture.
--- NOTE | 2021-10-18 13:48 | XR_ITS ---
WS: [email or web address] Exam: XR pelvis 1-2V* [id number] Date/Time of Exam: 10/18/2021 1:52 PM Reason For Exam: pain Comparison 01/27/2019. No acute pelvic fracture. Total hip prosthesis in place on the left intact as visualized. 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 XR/XR pelvis 1-2V* 47377 IMPRESSION: 1. No acute pelvic fracture.
--- NOTE | 2021-10-18 13:48 | XR_ITS ---
WS: [email or web address] Exam: XR shoulder LT min 2V* [id number] Date/Time of Exam: 10/18/2021 1:52 PM Reason For Exam: shoulder pain No acute fracture or dislocation. Mild soft tissue calcification along the humeral head that might in dicate calcific tendinitis and/or bursitis. XR/XR shoulder LT min 2V* 68457 IMPRESSION: 1. No fracture or dislocation. 2. Possible mild calcific tendinitis or bursitis.
--- NOTE | 2021-10-18 13:48 | CT_ITS ---
WS: [email or web address] CT HEAD TECHNIQUE: Noncontrast CT of the head obtained from the skullbase to the vertex. CLINICAL INFORMATION: fall COMPARISON: None. DLP: 956.[address] scans at [facility] use at least one of these dose optimization techniques: automated e xposure control; mA and/or kV adjustment per patient size (includes targeted exams where dose is matc hed to clinical indication); or iterative reconstruction. FINDINGS: No evidence of intracranial hemorrhage or mass effect. Ventricular system and basal cisterns are mccann nt. Moderate small vessel changes with moderate parenchymal volume loss. Chronic lacunar infarct RIGH T caudate. No extra-axial fluid collections. No evidence of mass or mass effect. Paranasal sinuses and mastoid air cells are well aerated. .Normal visualized soft tissues. CT/CT head wo con* [id number] IMPRESSION: 1. No evidence of intracranial hemorrhage or mass effect. 2. Moderate small vessel changes with moderate parenchymal volume loss. 3. Chronic lacunar infarct RIGHT caudate. 4. No acute intracranial findings.
--- NOTE | 2021-10-18 13:48 | XR_ITS ---
WS: [email or web address] Exam: XR ribs LT mn 3V w CXR1V 63398 Date/Time of Exam: 10/18/2021 1:52 PM Reason For Exam: rib pain No acute left rib fracture noted. The left lung is clear and fully expanded. No pleural or pulmonary reactive changes. XR/XR ribs LT mn 3V w CXR1V 40961 IMPRESSION: 1. Negative left rib study. No pneumothorax.
--- NOTE | 2021-10-18 13:48 | XR_ITS ---
WS: [email or web address] Exam: XR lumbar spine 2-3V* [id number] Date/Time of Exam: 10/18/2021 1:52 PM Reason For Exam: pain Comparison 01/27/2019. No acute fracture or dislocation. Mild disc degenerative change at L4-5 with the slight degenerative anterolisthesis. Facet arthropathy at L4-5 and L5-S1. Minimal spondylosis. Moderate aortoiliac athero sclerosis. XR/XR lumbar spine 2-3V* 26384 IMPRESSION: 1. Mild degenerative changes. No acute fracture or malalignment.
--- NOTE | 2021-10-18 13:54 | W.ED.GENADLT ---
HPI - General Adult General: Chief complaint: Fall Stated complaint: Fell in a hole, Left Knee injury Time Seen by Provider: 10/18/21 13:32 History of Present Illness: Patient is a 81-year-old male with a history of depression, PTSD, prior appendectomy and cholecystectomy presenting to the emergency room with concerns for fall. Patient tells me that he was taking up a septic tank earlier today around 12:00 when he slipped and fell next to the hole. Patient reports hitting his right knee against the ground and then his left neck and head into the hole. Patient complains of L facial pain, left lateral chest, left shoulder and left neck pain. Patient also reports right knee pain. Patient denies LOC, or other injuries currently. Onset: 12pm Duration:1 hr ago Location:outside Severity:moderate Associated symptoms: Deny chest pain, dyspnea, nausea, rash, palpitations or vomiting Review of Systems Const: Denies: fever(s) or chills Eyes: Denies: change in vision ENMT: Denies: mouth pain Card: Denies: chest pain or palpitations Resp: Denies: dyspnea or non-productive cough GI: Denies: abdominal pain, nausea, vomiting or diarrhea : Denies: dysuria Musc: Reports: extremity pain (+R knee pain) and other (+L neck pain, L shoulder pain, L face pain) Skin/Breast: Denies: rash or new lesions Neuro: Denies: weakness in extremities Psych: Reports: other (Normal mood) Edwar/Lymph: Denies: easy bruising PFSH ED PFSH: Medical History BPH loc w urin obs/LUTS Hx of cataract Major depressive disorder Psychiatric care PTSD (post-traumatic stress disorder) Surgical History History of hip replacement Hx of appendectomy Hx of cholecystectomy Hx of discectomy Hx of total knee replacement Family History Brother Diabetes Mother , AT AGE 81 CHF (congestive heart failure) Father , AT AGE 75 CAD (coronary artery disease) Social History Smoking and tobacco status: former smoker Quit status (tobacco): has quit using tobacco Year quit tobacco: 1974 Second hand smoke exposure: No Alcohol intake: never Marital status: Current occupational status: retired Current gender identity: Male Physical Exam Const: COMMON NORMALS: alert HENMT: COMMON NORMALS: atraumatic HEAD & SCALP: atraumatic MOUTH: moist mucous membranes not abnormal Eye: COMMON NORMALS: EOMs intact bilaterally and conjunctivae normal CONJUNCTIVA: Yes conjunctivae normal Neck/C-Spine: COMMON NORMALS: full ROM and supple OTHER: + Mild right lateral neck tenderness to palpation Chest: OTHER: + Left lateral chest tenderness to palpation Resp: COMMON NORMALS: normal respiratory effort and clear to auscultation bilaterally AUSCULTATION: clear to auscultation bilaterally Cardio: COMMON NORMALS: regular rate RATE: regular rate GI: COMMON NORMALS: Soft to palpation and non-tender PALPATION: Yes Soft to palpation Back/Pelvis: OTHER: +paraspinal thoracic and lumbar tenderness to palpation Extremity: COMMON NORMALS: full ROM Neuro: SENSORIUM/ORIENTATION: Yes alert MOTOR EXAM: No Abnormal motor strength present and Other motor observations present (no focal motor deficits) Psych: COMMON NORMALS: speech normal SPEECH: Yes normal speech MOOD & AFFECT: Yes euthymic mood Course Vital Signs: Vital signs: Vital Signs Temperature 97.9 F 10/18/21 13:37 Pulse Rate 62 10/18/21 13:37 Respiratory Rate 16 10/18/21 15:57 Blood Pressure 151/95 10/18/21 13:37 Pulse Oximetry 96 10/18/21 15:11 MDM - General Adult Medical Decision Making Patient 81-year-old male with history of PTSD depression presenting to the emergency room with complaints of right knee pain left lateral rib pain, left shoulder pain, left neck pain and left-sided facial pain. On physical exam patient also had paraspinal cervical, thoracic, lumbar tenderness. Range of motion of right knee intact. Left knee range of motion intact. +L lateral chest tenderness to palpation. On reassessment, patient received IM morphine, Tylenol and lidocaine patch with significant improvement in pain. Patient was found to have no focal fractures on XR. I have given patient follow up with our disease case manager to be seen by our outpatient PCP for reassessment of pain. Patient aware of a call from our disease case manager to schedule for appointment(s) and verbalizes understanding of the importance of following up. Instructed to follow-up in 1 week for repeat x-ray should she have any more rib pain, shoulder pain or hip pain. Rx: Perococet, lidocaine patch, and menthol PRN pain Disposition: Discharge. Patient counseled regarding diagnostic impression, treatment plan. Patient given ED strict return precautions to return for continuation, worsening, or development of new symptoms. Instructed to f/u w/ PCP regarding symptoms today. Patient verbalized understanding. Lab Data Radiology Impressions Knee X-Ray 10/18/21 13:32 IMPRESSION: 1. Intact total knee replacement. No fracture or loosening. 2. Joint effusion. Cervical Spine CT 10/18/21 13:48 IMPRESSION: No evidence of acute fracture or dislocation. Face CT 10/18/21 13:48 IMPRESSION: No acute facial fracture. Head CT 10/18/21 13:48 IMPRESSION: 1. No evidence of intracranial hemorrhage or mass effect. 2. Moderate small vessel changes with moderate parenchymal volume loss. 3. Chronic lacunar infarct RIGHT caudate. 4. No acute intracranial findings. Lumbar Spine X-Ray 10/18/21 13:48 IMPRESSION: 1. Mild degenerative changes. No acute fracture or malalignment. Pelvis X-Ray 10/18/21 13:48 IMPRESSION: 1. No acute pelvic fracture. Ribs X-Ray 10/18/21 13:48 IMPRESSION: 1. Negative left rib study. No pneumothorax. Shoulder X-Ray 10/18/21 13:48 IMPRESSION: 1. No fracture or dislocation. 2. Possible mild calcific tendinitis or bursitis. Thoracic Spine X-Ray 10/18/21 13:57 IMPRESSION: 1. Minimal degenerative change and osteopenia. 2. No fracture or malalignment. Chest X-Ray 10/18/21 14:17 IMPRESSION: Mediastinum mildly widened. May be secondary to supine position of the patient. Imaging Data Other Imaging: Radiologist's impression: [address] [place] [address] XRay Report Signed Patient: Reza Syed Unit #: [id number] : 1940 Age/Sex: 81 / M ADM Date: 10/18/21 Loc: ER Room/Bed: Attending Dr: Ordering Provider/Ordering MD: Didi Garcia MD Date of Service: 10/18/21 Procedure(s): XR thoracic spine 2V 25061 Accession Number(s): [id number] Report Number: [id number] WS: [email or web address] Exam: XR thoracic spine 2V 31147 Date/Time of Exam: 10/18/2021 2:04 PM Reason For Exam: back pain No acute fracture or dislocation. Mild spondylosis. No scoliosis noted. Normal paraspinal soft tissues. XR/XR thoracic spine 2V 75168 IMPRESSION: 1. Minimal degenerative change and osteopenia. 2. No fracture or malalignment. ? Dictated By: Bonifacio Polanco DO Signed By: Bonifacio Polanco DO Signed Date/Time: 10/18/21 1447 DD/ [address] [place] [address] XRay Report Signed Patient: Reza Syed Unit #: [id number] : 1940 Age/Sex: 81 / M ADM Date: 10/18/21 Loc: ER Room/Bed: Attending Dr: Ordering Provider/Ordering MD: Didi Garcia MD Date of Service: 10/18/21 Procedure(s): XR shoulder LT min 2V* 14407 Accession Number(s): [id number] Report Number: [id number] WS: [email or web address] Exam: XR shoulder LT min 2V* 07751 Date/Time of Exam: 10/18/2021 1:52 PM Reason For Exam: shoulder pain No acute fracture or dislocation. Mild soft tissue calcification along the humeral head that might indicate calcific tendinitis and/or bursitis. XR/XR shoulder LT min 2V* 19936 IMPRESSION: 1. No fracture or dislocation. 2. Possible mild calcific tendinitis or bursitis. ? Dictated By: Bonifacio Polanco DO Signed By: Bonifacio Polanco DO Signed Date/Time: 10/18/21 1449 DD/ [address] [place] [address] XRay Report Signed Patient: Reza Syed Unit #: [id number] : 1940 Age/Sex: 81 / M ADM Date: 10/18/21 Loc: ER Room/Bed: Attending Dr: Ordering Provider/Ordering MD: Didi Garcia MD Date of Service: 10/18/21 Procedure(s): XR ribs LT mn 3V w CXR1V 22536 Accession Number(s): [id number] Report Number: [id number] WS: [email or web address] Exam: XR ribs LT mn 3V w CXR1V 62472 Date/Time of Exam: 10/18/2021 1:52 PM Reason For Exam: rib pain No acute left rib fracture noted. The left lung is clear and fully expanded. No pleural or pulmonary reactive changes. XR/XR ribs LT mn 3V w CXR1V 33357 IMPRESSION: 1. Negative left rib study. No pneumothorax. ? Dictated By: Bonifacio Polanco DO Signed By: Bonifacio Polanco DO Signed Date/Time: 10/18/21 1456 DD/ [facility] [address] XRay Report Signed Patient: Reza Syed Unit #: [id number] : 1940 Age/Sex: 81 / M ADM Date: 10/18/21 Loc: ER Room/Bed: Attending Dr: Ordering Provider/Ordering MD: Didi Garcia MD Date of Service: 10/18/21 Procedure(s): XR pelvis 1-2V* 78698 Accession Number(s): [id number] Report Number: [id number] WS: [email or web address] Exam: XR pelvis 1-2V* 43673 Date/Time of Exam: 10/18/2021 1:52 PM Reason For Exam: pain Comparison 01/27/2019. No acute pelvic fracture. Total hip prosthesis in place on the left intact as visualized. 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 XR/XR pelvis 1-2V* 65646 IMPRESSION: 1. No acute pelvic fracture. ? Dictated By: Bonifacio Polanco DO Signed By: Bonifacio Polanco DO Signed Date/Time: 10/18/211451 DD/ [address] [place] [address] XRay Report Signed Patient: Reza Syed Unit #: [id number] : 1940 Age/Sex: 81 / M ADM Date: 10/18/21 Loc: ER Room/Bed: Attending Dr: Ordering Provider/Ordering MD: Didi Garcia MD Date of Service: 10/18/21 Procedure(s): XR lumbar spine 2-3V* 32286 Accession Number(s): [id number] Report Number: [id number] WS: [email or web address] Exam: XR lumbar spine 2-3V* 65238 Date/Time of Exam: 10/18/2021 1:52 PM Reason For Exam: pain Comparison 01/27/2019. No acute fracture or dislocation. Mild disc degenerative change at L4-5 with the slight degenerative anterolisthesis. Facet arthropathy at L4-5 and L5-S1. Minimal spondylosis. Moderate aortoiliac atherosclerosis. XR/XR lumbar spine 2-3V* 70357 IMPRESSION: 1. Mild degenerative changes. No acute fracture or malalignment. ? Dictated By: Bonifacio Polanco DO Signed By: Bonifacio Polanco DO Signed Date/Time: 10/18/211453 DD/ [address] [place] [address] CT Scan Report Signed Patient: Reza Syed Unit #: [id number] : 1940 Age/Sex: 81 / M ADM Date: 10/18/21 Loc: ER Room/Bed: Attending Dr: Ordering Provider/Ordering MD: Didi Garcia MD Date of Service: 10/18/21 Procedure(s): CT head wo con* 14990 Accession Number(s): [id number] Report Number: [id number] WS: [email or web address] CT HEAD TECHNIQUE: Noncontrast CT of the head obtained from the skullbase to the vertex. CLINICAL INFORMATION: fall COMPARISON: None. DLP: 956.[address] scans at [facility] use at least one of these dose optimization techniques: automated exposure control; mA and/or kV adjustment per patient size (includes targeted exams where dose is matched to clinical indication); or iterative reconstruction. FINDINGS: No evidence of intracranial hemorrhage or mass effect. Ventricular system and basal cisterns are patent. Moderate small vessel changes with moderate parenchymal volume loss. Chronic lacunar infarct RIGHT caudate. No extra-axial fluid collections. No evidence of mass or mass effect. Paranasal sinuses and mastoid air cells are well aerated. .Normal visualized soft tissues. CT/CT head wo con* 28248 IMPRESSION: ? 1.? No evidence of intracranial hemorrhage or mass effect. 2.? Moderate small vessel changes with moderate parenchymal volume loss. 3.? Chronic lacunar infarct RIGHT caudate. 4.? No acute intracranial findings. ? Dictated By: Vic Goodrich MD Signed By: Vic Goodrich MD Signed Date/Time: 10/18/21 152 DD/ [address] [place] [address] CT Scan Report Signed Patient: Reza Syed Unit #: [id number] : 1940 Age/Sex: 81 / M ADM Date: 10/18/21 Loc: ER Room/Bed: Attending Dr: Ordering Provider/Ordering MD: Didi Garcia MD Date of Service: 10/18/21 Procedure(s): CT facial bones wo con* 92336 Accession Number(s): [id number] Report Number: [id number] WS: [email or web address] CT FACIAL BONES TECHNIQUE: Noncontrast facial bones with coronal and sagittal reformatted images. CLINICAL INFORMATION: fall COMPARISON: None. DLP: 744.[address] scans at [facility] use at least one of these dose optimization techniques: automated exposure control; mA and/or kV adjustment per patient size (includes targeted exams where dose is matched to clinical indication); or iterative reconstruction. FINDINGS: Mild mucosal thickening ethmoid air cells. Mastoid air cells are well aerated. Normal visualized soft tissues. Normal posterior nasopharynx. Normal parapharyngeal fat. Parotid glands are normal. Submandibular glands are normal where visualized. Orbits are normal in appearance. Inferior orbits are normal in appearance. Normal lamina papyracea. No evidence of mandibular fracture dislocation. CT/CT facial bones wo con* 37160 IMPRESSION: ? No acute facial fracture. ? Dictated By: Vic Goodrich MD Signed By: Vic Goodrich MD Signed Date/Time: 10/18/21 1527 DD/ [address] [address] [address] Scan Report Signed Patient: Reza Syed Unit #: [id number] : 1940 Age/Sex: 81 / M ADM Date: 10/18/21 Loc: ER Room/Bed: Attending Dr: Ordering Provider/Ordering MD: Didi Garcia MD Date of Service: 10/18/21 Procedure(s): CT cervical spin wo con* 24620 Accession Number(s): [id number] Report Number: [id number] WS: [email or web address] CT CERVICAL TRAUMA TECHNIQUE: Noncontrast CT of the cervical spine with coronal and sagittal reformatted images. CLINICAL INFORMATION: fall COMPARISON: None. DLP: 789.[address] scans at [facility] use at least one of these dose optimization techniques: automated exposure control; mA and/or kV adjustment per patient size (includes targeted exams where dose is matched to clinical indication); or iterative reconstruction. FINDINGS: Straightening of the normal cervical lordosis. Slight anterolisthesis C5 on C6. Disc space narrowing worse at C6-C7. Mild central canal stenosis C5-C6 and C6-C7. Normal craniocervical junction. Normal C1-C2 articulation. Dens is normal in appearance. Normal occipital condyles. Normal C1 ring. No evidence of acute fracture or dislocation. Bilateral thyroid nodules largest in the RIGHT measuring 1.[address]/CT cervical spin wo con* 59136 IMPRESSION: ? No evidence of acute fracture or dislocation. ? Dictated By: Vic Goodrich MD Signed By: Vic Goodrich MD Signed Date/Time: 10/18/21 1532 DD/ [address] [address] XRay Report Signed Patient: Reza Syed Unit #: [id number] : 1940 Age/Sex: 81 / M ADM Date: 10/18/21 Loc: ER Room/Bed: Attending Dr: Ordering Provider/Ordering MD: Didi Garcia MD Date of Service: 10/18/21 Procedure(s): XR knee RT 3V* 07182 Accession Number(s): [id number] Report Number: [id number] WS: [email or web address] Exam: XR knee RT 3V* 59523 Date/Time of Exam: 10/18/2021 1:51 PM Reason For Exam: eval injury A total knee prosthesis is in place in satisfactory position. No sign of loosening or fracture. Moderate effusion in the suprapatellar bursa. XR/XR knee RT 3V* 07506 IMPRESSION: 1. Intact total knee replacement. No fracture or loosening. 2. Joint effusion. ? Dictated By: Bonifacio Polanco DO Signed By: Bonifacio Polanco DO Signed Date/Time: 10/18/21 1450 DD/ 1449 Discharge Plan Discharge Patient Disposition: Home Clinical Impression: Fall Condition: Stable Prescriptions: New Percocet 5-325 mg tablet 1 tab PO Q8H PRN (Reason: pain) Qty: 9 0RF lidocaine 5 % adhesive patch,medicated 1 patch topical DAILY PRN (Reason: pain) 30 Days Qty: 30 0RF Rx Instructions: leave on most painful area for up to 12 hrs Biofreeze (menthol) 5 % gel 1 ea topical BID PRN (Reason: pain) 10 Days Qty: 1 0RF No Action clobetasol 0.05 % cream 1 applic TOPICAL DAILY PRN (Reason: rash) 0RF meloxicam 15 mg tablet 15 mg PO QAM 0RF hydrochlorothiazide 25 mg tablet 25 mg PO QAM 0RF All Day Allergy (cetirizine) 10 mg capsule 10 mg PO QAM 0RF acetaminophen [Tylenol Arthritis Pain] 650 mg tablet extended release 1,300 mg PO BEDTIME 0RF tramadol 50 mg tablet 50 mg PO Q6H PRN (Reason: Pain) 0RF cephalexin 500 mg capsule 500 mg PO BID 7 Days Qty: 14 0RF silver sulfadiazine 1 % cream 1 applic topical BID 14 Days Qty: 50 2RF Rx Instructions: apply a 1.5 mm thickness bupropion HCl 150 mg tablet extended release 24 hr 150 mg PO QAM 90 Days Qty: 90 3RF donepezil 10 mg Tablet 10 mg PO BEDTIME 0RF Aspir-81 81 mg Tablet,Delayed Release (Dr/Ec) 81 mg PO QAM 0RF baclofen 10 mg Tablet 10 mg PO BID 0RF Benadryl 25 mg Capsule 25 mg PO BEDTIME 0RF Saline Nasal 0.65 % Aerosol,[place] 2 spray INTRANASAL .UP TO TWICE A DAY 0RF trazodone 50 mg tablet 50 mg PO BEDTIME 0RF clonazepam 0.5 mg tablet 0.5 mg PO BID 0RF Discharge Orders: Discharge ED (Routine); Ordered 10/18/21 Ordered By: Didi Garcia Referrals: Iris Tao MD [Primary Care Provider] - Discharge Diet: Advance as tolerated Discharge Activity: Increase activity as tolerated Patient Instructions: Opioid Safety Activity Restrictions/Additional Instructions: Please come back to the emergency room for any new concerning complaints. Our disease case manager will have you follow-up with PCP in the next few days. You would be expected to have a phone call with our disease case manager who will put you on the schedule. You can expect a call from us in the next 2-3 days. If you don't hear from us, call us back in the emergency room at [phone]. Coding Level of Care Code ED Last Sawyer for Brianna Fwsara Exam Comprehensive
--- NOTE | 2021-10-18 13:57 | XR_ITS ---
WS: [email or web address] Exam: XR thoracic spine 2V 39245 Date/Time of Exam: 10/18/2021 2:04 PM Reason For Exam: back pain No acute fracture or dislocation. Mild spondylosis. No scoliosis noted. Normal paraspinal soft tissue s. XR/XR thoracic spine 2V 84120 IMPRESSION: 1. Minimal degenerative change and osteopenia. 2. No fracture or malalignment.
--- NOTE | 2021-10-18 14:17 | XR_ITS ---
WS: [email or web address] PORTABLE CHEST HISTORY: FALL; C/O PAIN LEFT RIBS COMPARISON: None available. Lungs are clear and well expanded. No pleural effusion or pneumothorax. Cardiac size: Mildly enlarged. Mediastinum/Aorta: Mildly prominent mediastinum. May be due to supine positioning the patient. No osseous abnormality seen. XR/XR chest 1V portable 57325 IMPRESSION: Mediastinum mildly widened. May be secondary to supine position of the patient.
[2021-10-18] MEDS: lidocaine 5% Patch 1 PATCH TOPICAL (15:10)
[2021-10-18] MEDS: acetaminophen 500 mg Tablet PO (15:10)
[2021-10-18 15:11] VITALS: RESP 16; O2SAT 96
[2021-10-18] MEDS: morphine 4 mg/mL SDV 1 mL 2 MG IM (15:11)
[2021-10-18 15:57] VITALS: RESP 16
--- NOTE | 2021-10-19 12:37 | DCPLANNER ---
practice performance manager had message to speak with patient about getting a follow up appointment for patient with primary care physician. practice performance manager spoke with patients , she stated that patient could make the follow up appointment.
== END 2021-10-18 15:58 | disposition home or self-care (01) ==
PROVIDERS: Emergency Provider Emergency Medicine; PCP Family Medicine
DX: M25.561 Pain in right knee (principal); M54.2 Cervicalgia; M25.512 Pain in left shoulder; R51.9 Headache, unspecified; M54.6 Pain in thoracic spine; M54.50 Low back pain, unspecified; W17.2XXA Fall into hole, initial encounter; F43.10 Post-traumatic stress disorder, unspecified; F32.A Depression, unspecified
CPT/HCPCS: 70450; 70486; 71045; 71101; 72070; 72100; 72125; 72170; 73030; 73562; 96372; 99283; J2270

== ENCOUNTER → 2021-10-20 09:48 | Outpatient (BNVA) | payer OTHER, MEDICARE, SELFPAY | PROVIDERS: PCP Family Medicine; Visit Provider Specialist | DX: M19.011 Primary osteoarthritis, right shoulder (principal); M19.012 Primary osteoarthritis, left shoulder; W19.XXXA Unspecified fall, initial encounter; Z87.891 Personal history of nicotine dependence | CPT/HCPCS: 20610; 99213 ==

== ENCOUNTER 2021-10-20 12:18 | Emergency (ER) | payer OTHER, MEDICARE, SELFPAY ==
[2021-10-20 12:40] VITALS: PULSE 72; RESP 16; TEMP 36.8; O2SAT 96; BMI 30.2
--- NOTE | 2021-10-20 13:38 | W.ED.FALL ---
HPI - Fall General: Chief Complaint: Fall Stated Complaint: fall Time Seen by Provider: 10/20/21 13:22 History of Present Illness: Patient is a 81-year-old male comes to the ED with back pain. Patient was seen here back on October 18 after having a fall. He had imaging done of his neck, head, thoracic, lumbar spine, shoulder and knee and everything came back negative. He was discharged home and told to follow-up with primary care doctor. He said today he woke up and he was having more significant lower back pain. He says pain worsened with any range of motion or movement. He denies any reinjury or fall to cause worsening pain. Patient did take a Percocet approximately 1 hour before coming to the ED and symptoms did improve. He is feeling more comfortable now. Denies any pain radiating down one of his legs. Denies any cauda equina symptoms. Associated symptoms-after fall: Denies abdominal pain, chest pain, headache(s), hematuria or neck pain Review of Systems Const: Denies: fever(s), chills or fatigue Eyes: Denies: change in vision or eye discomfort ENMT: Denies: throat pain, odynophagia, nasal discharge or nasal congestion Card: Denies: chest pain, palpitations, edema, swelling of feet/ankles, dyspnea on exertion or orthopnea Resp: Denies: dyspnea, productive cough or non-productive cough GI: Denies: abdominal pain, nausea, vomiting, diarrhea, constipation or hematochezia : Denies: flank pain, difficulty urinating, dysuria or hematuria Musc: Reports: back pain; Denies: neck pain or extremity swelling Skin/Breast: Denies: rash or new lesions Neuro: Denies: headache(s), numbness in extremities or weakness in extremities PFS ED PFSH: Medical History BPH loc w urin obs/LUTS Hx of cataract Major depressive disorder Psychiatric care PTSD (post-traumatic stress disorder) Surgical History History of hip replacement Hx of appendectomy Hx of cholecystectomy Hx of discectomy Hx of total knee replacement Family History Brother Diabetes Mother , AT AGE 81 CHF (congestive heart failure) Father , AT AGE 75 CAD (coronary artery disease) Social History Smoking and tobacco status: former smoker Quit status (tobacco): has quit using tobacco Year quit tobacco: 1974 Second hand smoke exposure: No Alcohol intake: never Marital status: Current occupational status: retired Current gender identity: Male Physical Exam Const: COMMON NORMALS: no acute distress, patient oriented x3 and alert GENERAL APPEARANCE: cooperative and comfortable HENMT: COMMON NORMALS: normocephalic HEAD & SCALP: normocephalic MOUTH: Normal oral and palatal mucosa present THROAT: posterior oropharynx normal and uvula midline Eye: COMMON NORMALS: Equal, round and reactive pupils present and conjunctivae normal CONJUNCTIVA: Yes conjunctivae normal PUPIL: Yes Equal, round and reactive pupils present Neck/C-Spine: COMMON NORMALS: supple GENERAL: Yes normal visual inspection Resp: COMMON NORMALS: normal respiratory effort, No retractions, No use of accessory muscles and clear to auscultation bilaterally AUSCULTATION: clear to auscultation bilaterally Cardio: COMMON NORMALS: regular rate, regular rhythm, S1 normal heart sound present, S2 normal heart sound present, No gallops present (Cardio), No clicks present (Cardio), No murmurs present (Cardio) and Peripheral pulses 2+ throughout RATE: regular rate RHYTHM: regular rhythm HEART SOUNDS: S1 normal heart sound present and S2 normal heart sound present PERIPHERAL PULSES: Peripheral pulses 2+ throughout GI: COMMON NORMALS: Normal to inspection, nondistended, normoactive bowel sounds present, Soft to palpation, non-tender and no masses PALPATION: Yes Soft to palpation : COMMON NORMALS: Yes no CVA tenderness BLADDER/KIDNEY EXAM: Yes no CVA tenderness Back/Pelvis: COMMON NORMALS: no CVA tenderness LUMBAR SPINE/LOWER BACK: No lumbar spinal tenderness and Yes paraspinal muscle tenderness Lumbar paraspinal muscle tenderness: bilateral Bilateral lumbar paraspinal muscle tenderness: L4 and L5 Extremity: NARRATIVE EXTREMITY EXAM: Right knee has some visible swelling. No joint erythema or warmth. Patient does have full range of motion in right knee. Neurovascular tact. GENERAL: Yes normal exam except as noted Neuro: COMMON NORMALS: patient oriented x3 and moves all extremities SENSORIUM/ORIENTATION: Yes alert Skin: GENERAL SKIN EXAM: dry skin Course Vital Signs: Vital signs: Vital Signs Temperature 98.2 F 10/20/21 12:40 Pulse Rate 72 10/20/21 12:40 Respiratory Rate 16 10/20/21 12:40 Pulse Oximetry 96 10/20/21 12:40 MDM - Fall Medical Decision Making Patient is a 81-year-old male comes to the ED with back pain. Patient was seen here in the ED back on October 18 after having a fall. Patient had full body scan including the spine had an neck and right knee and all imaging showed no acute findings. Today woke up and had worsening lower back pain. Denies any injury or trauma since his fall couple days ago to cause worsening symptoms. Vitals are stable. Patient does have some bilateral lumbar paraspinal muscle tenderness. No palpable lumbar spinal tenderness noted. Since patient did not have any reinjury and he already had imaging done on his back 2 days ago I did not do any repeat imaging on him. He was diagnosed with back pain due to his injury a couple days ago. I sent him home with a prescription for hydrocodone and a muscle relaxer. He was told to follow-up with his PCP in the next couple days for reevaluation. Return to ED precautions given. Patient understood and agreed with plan. Discharge Plan Discharge Patient Disposition: Home Clinical Impression: Back pain due to injury Condition: Stable Prescriptions: New methocarbamol 750 mg tablet 750 mg PO Q8H PRN (Reason: Muscle spasms and pain) Qty: 20 0RF No Action clobetasol 0.05 % cream 1 applic TOPICAL DAILY PRN (Reason: rash) 0RF meloxicam 15 mg tablet 15 mg PO QAM 0RF hydrochlorothiazide 25 mg tablet 25 mg PO QAM 0RF All Day Allergy (cetirizine) 10 mg capsule 10 mg PO QAM 0RF acetaminophen [Tylenol Arthritis Pain] 650 mg tablet extended release 1,300 mg PO BEDTIME 0RF tramadol 50 mg tablet 50 mg PO Q6H PRN (Reason: Pain) 0RF silver sulfadiazine 1 % cream 1 applic topical BID 14 Days Qty: 50 2RF Rx Instructions: apply a 1.5 mm thickness bupropion HCl 150 mg tablet extended release 24 hr 150 mg PO QAM 90 Days Qty: 90 3RF donepezil 10 mg Tablet 10 mg PO BEDTIME 0RF Aspir-81 81 mg Tablet,Delayed Release (Dr/Ec) 81 mg PO QAM 0RF baclofen 10 mg Tablet 10 mg PO BID 0RF Benadryl 25 mg Capsule 25 mg PO BEDTIME 0RF Saline Nasal 0.65 % Aerosol,[place] 2 spray INTRANASAL .UP TO TWICE A DAY 0RF trazodone 50 mg tablet 50 mg PO BEDTIME 0RF clonazepam 0.5 mg tablet 0.5 mg PO BID 0RF Percocet 5-325 mg tablet 1 tab PO Q8H PRN (Reason: pain) Qty: 9 0RF Discharge Orders: Discharge ED (Routine); Ordered 10/20/21 Ordered By: Sky Menendez Referrals: Iris Tao MD [Primary Care Provider] - Discharge Diet: Regular Discharge Activity: Increase activity as tolerated Activity Restrictions/Additional Instructions: Follow-up with your primary care physician in the next 3 to 5 days for reevaluation. Take medications as prescribed. Methocarbamol is a muscle relaxer and can cause some drowsiness so take at night before going to bed. Apply cold pack on lower back to help with symptoms. Return to the ER or your medical provider if condition worsens. Please read and understand discharge instructions. Thank you for choosing [facility] for your healthcare needs today. Please realize this is an emergency room and that we are providing you with a medical screening exam and this may not be complete and all inclusive of all the testing and or work up that you may need to determine your ailment or severity of your illness. It is very important that you follow up as instructed or that you return to the Emergency Department should you have concerns or if your condition changes or worsens in any way. Coding Level of Care Code ED Scrap Kettle Tender for Brianna Bhat Exam Comprehensive
== END 2021-10-20 14:08 | disposition home or self-care (01) ==
PROVIDERS: Emergency Provider Physician Assistant; PCP Family Medicine
DX: M54.50 Low back pain, unspecified (principal); Z87.891 Personal history of nicotine dependence; Z79.891 Long term (current) use of opiate analgesic; Z79.82 Long term (current) use of aspirin
CPT/HCPCS: 20610; 99281; J1100; J2795; J3301

== ENCOUNTER → 2021-11-24 08:58 | Outpatient (BNVA) | payer OTHER, MEDICARE, SELFPAY | PROVIDERS: PCP Family Medicine; Visit Provider Podiatrist Foot & Ankle Surgery | DX: L60.0 Ingrowing nail (principal); L60.3 Nail dystrophy; Z98.890 Other specified postprocedural states | CPT/HCPCS: 99214 ==

== ENCOUNTER → 2021-12-06 14:57 | Outpatient (BNVA) | payer OTHER, MEDICARE, SELFPAY | PROVIDERS: PCP Family Medicine; Visit Provider Podiatrist Foot & Ankle Surgery | DX: L60.0 Ingrowing nail (principal); L60.3 Nail dystrophy; Z98.890 Other specified postprocedural states; M79.672 Pain in left foot | CPT/HCPCS: 99213 ==

== ENCOUNTER → 2022-01-05 10:19 | Outpatient (BNVA) | payer OTHER, SELFPAY | PROVIDERS: PCP Family Medicine; Visit Provider Podiatrist Foot & Ankle Surgery | DX: L60.0 Ingrowing nail (principal); L60.3 Nail dystrophy; Z98.890 Other specified postprocedural states; M79.672 Pain in left foot | CPT/HCPCS: 99213; 99214 ==

== ENCOUNTER → 2022-01-18 13:12 | Outpatient (BNVA) | payer OTHER, MEDICARE, SELFPAY | PROVIDERS: PCP Family Medicine; Visit Provider Specialist | DX: S89.91XA Unspecified injury of right lower leg, initial encounter (principal); S72.431A Displaced fracture of medial condyle of right femur, initial encounter for closed fracture; X58.XXXA Exposure to other specified factors, initial encounter; M25.561 Pain in right knee; M25.562 Pain in left knee | CPT/HCPCS: 27508; 73560; 73565; 99213 ==

== ENCOUNTER 2022-01-18 16:12 | Outpatient (CLI) | payer OTHER, MEDICARE, SELFPAY | END 2022-01-18 16:13 | disposition home or self-care (01) | LOC: SPT 16:13 | PROVIDERS: PCP Family Medicine; Visit Provider Specialist | DX: Z46.89 Encounter for fitting and adjustment of other specified devices (principal); S72.43 Fracture of medial condyle of femur; X58.XXXD Exposure to other specified factors, subsequent encounter | CPT/HCPCS: 97760; L1812 ==

== ENCOUNTER → 2022-02-09 10:46 | Outpatient (BNVA) | payer OTHER, MEDICARE, SELFPAY | PROVIDERS: PCP Family Medicine; Visit Provider Specialist | DX: M19.011 Primary osteoarthritis, right shoulder (principal); M19.012 Primary osteoarthritis, left shoulder | CPT/HCPCS: 20610; J1100; J2795; J3301 ==

== ENCOUNTER 2022-02-23 11:03 | Outpatient (CLI) | payer OTHER, SELFPAY ==
--- NOTE | 2022-02-23 11:19 | USCV_ITS ---
Reza Syed Age: 81 Gender: M : 1940 Exam Date: 02/23/2022 11:35 Ordering Phys: Iris Tao MD Technologist: Ang Brandt [place] [facility] [place]: [place] Risk Factors: Previous Vascular Surgery: None Right Brachial BP: / Left Brachial BP: / Right Left Velocity (cm/s) Spectral Plaque Velocity (cm/s) Spectral Plaque Syst/Diast Broadening Syst/Diast Broadening 110.30/16.50 Prox CCA 84.60 / 12.60 79.40/ 11.00 Mid CCA 73.30 / 15.20 68.40/ 14.30 Distal CCA 55.90 / 12.40 63.10/ 21.00 Prox ICA 51.90 / 13.80 63.10/ 21.00 Mid ICA 45.50 / 13.30 59.20/ 16.40 Distal ICA 42.90 / 12.90 57.20 ECA 82.30 0.79 ICA/CCA 0.62 Antegrade Vertebral Antegrade 40.80/ 11.80 cm/s 79.20/ 14.80 cm/s Bi Subclavian Bi 76.90 70.70 CONCLUSIONS Right ICA stenosis <50%. Mild atheromatous plaque right carotid bulb/ICA. Left ICA stenosis <50%. Mild atheromatous plaque left carotid bulb/ICA. Normal antegrade Doppler flow noted in the right vertebral artery. Normal antegrade Doppler flow noted in the left vertebral artery. Vic Goodrich MD (Electronically Signed) Final Date: 23 February 2022 14:39 S
== END 2022-02-23 11:04 | disposition home or self-care (01) ==
PROVIDERS: Absent Provider Family Medicine; PCP Family Medicine; Visit Provider Family Medicine
DX: R42 Dizziness and giddiness (principal); R26.89 Other abnormalities of gait and mobility; I65.23 Occlusion and stenosis of bilateral carotid arteries
CPT/HCPCS: 93880

== ENCOUNTER → 2022-03-08 09:50 | Outpatient (BNVA) | payer OTHER, SELFPAY | PROVIDERS: PCP Family Medicine; Visit Provider Podiatrist Foot & Ankle Surgery | DX: L60.0 Ingrowing nail (principal); L60.3 Nail dystrophy; Z98.890 Other specified postprocedural states | CPT/HCPCS: 99213 ==

== ENCOUNTER → 2022-05-18 11:12 | Outpatient (BNVA) | payer OTHER, SELFPAY | PROVIDERS: PCP Family Medicine; Visit Provider Specialist | DX: M19.011 Primary osteoarthritis, right shoulder (principal) | CPT/HCPCS: 20610; J1100; J2795; J3301 ==

== ENCOUNTER → 2022-08-24 10:58 | Outpatient (BNVA) | payer OTHER, SELFPAY | PROVIDERS: PCP Family Medicine; Visit Provider Specialist | DX: M19.011 Primary osteoarthritis, right shoulder (principal); M19.012 Primary osteoarthritis, left shoulder; Z71.89 Other specified counseling | CPT/HCPCS: 20610; J1100; J2795; J3301 ==

== ENCOUNTER → 2022-12-05 10:50 | Outpatient (BNVA) | payer OTHER, SELFPAY | PROVIDERS: PCP Family Medicine; Visit Provider Nurse Practitioner Family | DX: L30.4 Erythema intertrigo (principal); L57.8 Other skin changes due to chronic exposure to nonionizing radiation; D23.5 Other benign neoplasm of skin of trunk; L81.4 Other melanin hyperpigmentation; D22.5 Melanocytic nevi of trunk; Z71.89 Other specified counseling; L85.3 Xerosis cutis; L28.0 Lichen simplex chronicus; L57.0 Actinic keratosis; L82.1 Other seborrheic keratosis; L90.5 Scar conditions and fibrosis of skin; Z85.828 Personal history of other malignant neoplasm of skin; Z87.891 Personal history of nicotine dependence | CPT/HCPCS: 17000; 17003; 99214 ==

== ENCOUNTER → 2023-02-15 10:40 | Outpatient (BNVA) | payer OTHER, SELFPAY | PROVIDERS: PCP Family Medicine; Visit Provider Specialist | DX: M19.011 Primary osteoarthritis, right shoulder (principal); M19.012 Primary osteoarthritis, left shoulder; Z71.89 Other specified counseling | CPT/HCPCS: 20610; J1100; J2795; J3301 ==

== ENCOUNTER → 2023-04-25 15:05 | Outpatient (BNVA) | payer OTHER, SELFPAY | PROVIDERS: PCP Family Medicine; Visit Provider Dermatology | DX: D48.9 Neoplasm of uncertain behavior, unspecified (principal); L57.0 Actinic keratosis; L30.4 Erythema intertrigo; L21.8 Other seborrheic dermatitis; D18.01 Hemangioma of skin and subcutaneous tissue; L81.4 Other melanin hyperpigmentation; L82.1 Other seborrheic keratosis; Z85.828 Personal history of other malignant neoplasm of skin | CPT/HCPCS: 11102; 17000; 99214 ==

== ENCOUNTER → 2023-08-17 09:55 | Outpatient (BNVA) | payer OTHER, SELFPAY | PROVIDERS: PCP Family Medicine; Referring Provider Family Medicine; Visit Provider Specialist | DX: M19.011 Primary osteoarthritis, right shoulder (principal); M19.012 Primary osteoarthritis, left shoulder | CPT/HCPCS: 20610; J1100; J2795; J3301 ==

== ENCOUNTER → 2023-11-16 10:08 | Outpatient (BNVA) | payer OTHER, SELFPAY | PROVIDERS: PCP Family Medicine; Visit Provider Specialist | DX: M19.011 Primary osteoarthritis, right shoulder (principal); M19.012 Primary osteoarthritis, left shoulder | CPT/HCPCS: 20610; J1100; J2795; J3301 ==

== ENCOUNTER → 2024-02-12 15:18 | Outpatient (BNVA) | payer OTHER, SELFPAY | PROVIDERS: PCP Family Medicine; Visit Provider Dermatology | DX: L57.0 Actinic keratosis (principal); L30.4 Erythema intertrigo; L82.1 Other seborrheic keratosis; L85.3 Xerosis cutis; Z85.828 Personal history of other malignant neoplasm of skin | CPT/HCPCS: 17000; 99214 ==

== ENCOUNTER → 2024-02-22 10:05 | Outpatient (BNVA) | payer OTHER, SELFPAY | PROVIDERS: PCP Family Medicine; Visit Provider Specialist | DX: M19.011 Primary osteoarthritis, right shoulder (principal); M19.012 Primary osteoarthritis, left shoulder; Z71.89 Other specified counseling | CPT/HCPCS: 20610; J1100; J2795; J3301 ==

== ENCOUNTER → 2024-04-30 10:48 | Outpatient (BNVA) | payer OTHER, SELFPAY | PROVIDERS: PCP Family Medicine; Visit Provider Specialist | DX: M25.552 Pain in left hip (principal) | CPT/HCPCS: 73502; 99214 ==

== ENCOUNTER 2024-05-28 07:58 | Outpatient (CLI) | payer OTHER, SELFPAY ==
--- NOTE | 2024-05-28 08:00 | NMR_ITS ---
PROCEDURE INFORMATION: Exam: NM Bone and/or Joint, 3 Phase Exam date and time: 05/28/2024 8:00 AM Age: 84 years old Clinical indication: Bone pain; Left; Prior surgery; Surgery date: 6+ months; Surgery type: C4-c5 fused, l4-l5 fused; Patient HX: Lt hip RX, RT knee RX, fell down a hole 3 years ago; Additional info: Left hip pain TECHNIQUE: Imaging protocol: Nuclear 3 phase bone scan was obtained. Views: Frontal and posterior Radiopharmaceutical: 25 mCi Tc-99m HDP (Oxidronate), IV. Time of imaging post radiopharmaceutical administration: 2 hours COMPARISON: No relevant prior studies available. FINDINGS: Tubes, catheters and devices: No abnormal radiotracer uptake to suggest hardware loosening. Skeleton: Photopenic areas at the left hip and right knee consistent with prior left hip and right knee arthroplasties, respectively. Increased radiotracer uptake at the shoulders, mild on the right and moderate on the left. Mild increased radiotracer uptake at the cervical spine and left knee, consistent with degenerative change. Soft tissues: Unremarkable. NM/NM bone 3 phase 55574 IMPRESSION: 1. Photopenic areas at the left hip and right knee consistent with prior left hip and right knee arthroplasties, respectively. 2. No abnormal radiotracer uptake to suggest hardware loosening. 3. Increased radiotracer uptake at multiple osseous sites consistent with degenerative change, most pronounced at the left shoulder.
== END 2024-05-28 07:59 | disposition home or self-care (01) ==
LOC: RAD 07:59
PROVIDERS: PCP Family Medicine; Visit Provider Specialist
DX: M19.012 Primary osteoarthritis, left shoulder (principal); M25.559 Pain in unspecified hip; Z96.642 Presence of left artificial hip joint
CPT/HCPCS: 78315; A9561

== ENCOUNTER → 2024-06-06 10:51 | Outpatient (BNVA) | payer OTHER, SELFPAY | PROVIDERS: PCP Family Medicine; Visit Provider Specialist | DX: M19.011 Primary osteoarthritis, right shoulder (principal); M19.012 Primary osteoarthritis, left shoulder; Z71.89 Other specified counseling | CPT/HCPCS: 20610; J1100; J2795; J3301 ==

== ENCOUNTER → 2024-06-11 14:05 | Outpatient (BNVA) | payer OTHER, SELFPAY | PROVIDERS: PCP Family Medicine; Visit Provider Specialist | DX: M16.12 Unilateral primary osteoarthritis, left hip (principal); Z96.642 Presence of left artificial hip joint | CPT/HCPCS: 99214 ==

== ENCOUNTER → 2024-08-18 14:33 | Outpatient (BNVA) | payer OTHER, SELFPAY | PROVIDERS: PCP Family Medicine; Visit Provider Dermatology | DX: L30.4 Erythema intertrigo (principal); L72.0 Epidermal cyst; L85.3 Xerosis cutis; Z08 Encounter for follow-up examination after completed treatment for malignant neoplasm; Z85.828 Personal history of other malignant neoplasm of skin; L57.0 Actinic keratosis | CPT/HCPCS: 17000; 99213 ==

== ENCOUNTER → 2024-09-24 10:05 | Outpatient (BNVA) | payer OTHER, SELFPAY | PROVIDERS: PCP Family Medicine; Visit Provider Specialist | DX: M19.011 Primary osteoarthritis, right shoulder (principal); M19.012 Primary osteoarthritis, left shoulder | CPT/HCPCS: 20610; J1100; J2795; J3301; J9999 ==

== ENCOUNTER → 2024-12-26 08:10 | Outpatient (BNVA) | payer OTHER, SELFPAY | PROVIDERS: PCP Family Medicine; Visit Provider Specialist | DX: M19.011 Primary osteoarthritis, right shoulder (principal); M19.012 Primary osteoarthritis, left shoulder | CPT/HCPCS: 20610; J1100; J2795; J3301; J9999 ==

== ENCOUNTER → 2025-03-25 10:45 | Outpatient (BNVA) | payer OTHER, SELFPAY | PROVIDERS: PCP Family Medicine; Visit Provider Dermatology | DX: L30.4 Erythema intertrigo (principal); L21.8 Other seborrheic dermatitis | CPT/HCPCS: 17000; 99214 ==

== ENCOUNTER → 2025-04-01 12:47 | Outpatient (BNVA) | payer OTHER, SELFPAY | PROVIDERS: PCP Family Medicine; Visit Provider Specialist | DX: M19.011 Primary osteoarthritis, right shoulder (principal); M19.012 Primary osteoarthritis, left shoulder | CPT/HCPCS: 20610; J1100; J2795; J3301; J9999 ==